=== PATIENT | female | born 1995 | race Caucasian/White ===

== ENCOUNTER 2019-10-28 13:56 | Emergency (ER) | payer OTHER ==
[~2019-10-28] VITALS: Ht 165.1 cm; Wt 65.3 kg
[2019-10-28 14:28] VITALS: BP 115/75
[2019-10-28 19:11] VITALS: BP 115/75
--- NOTE | 2019-10-28 19:11 | NUR ---
NO NURSING CARE RENDERED-ALL EVAL, TX AND DISCHARGED DONE BY ER ME DR SALAZAR
== END 2019-10-28 19:11 | disposition home or self-care (01) ==
LOC: MED 13:56
DX: B34.9 Viral infection, unspecified (principal)
CPT/HCPCS: 99281

== ENCOUNTER 2019-11-13 17:21 | Emergency (ER) | payer OTHER ==
[~2019-11-13] VITALS: Ht 162.6 cm; Wt 66.7 kg
[2019-11-13 17:24] VITALS: BP 118/63
--- NOTE | 2019-11-13 17:36 | NUR ---
24 Y/O FEMALE C/O "SMALL BUMPS" ON SOFT PALATE EXTENDING TO THROAT FOR 1 MONTH. PT STATES "I FEEL LIKE THERE IS A BIG PILL STUCK IN MY THROAT". NO BUMPS OR ABNORMALITIES NOTED IN MOUTH OR THROAT. PT DENIES ANY TROUBLE SWALLOWING/BREATHING. MUCOUS MEMBRANES PINK AND MOIST. NKA NO PMH
--- NOTE | 2019-11-13 18:07 | NUR ---
Patient being evaluated by Dr. Starr at bedside.
[2019-11-13 18:35] VITALS: BP 112/76
--- NOTE | 2019-11-13 18:35 | NUR ---
Patient discharged with v/s stable. Written and verbal after care instructions given and explained. Patient alert, oriented and verbalized understanding of instructions. Ambulatory with steady gait. All questions addressed prior to discharge. ID band removed. Patient advised to follow up with PMD. Rx of Azithromycin 250mg given. Patient educated on indication of medication including possible reaction and side effects. Opportunity to ask questions provided and answered.
== END 2019-11-13 18:35 | disposition home or self-care (01) ==
LOC: MED 17:21
DX: J02.9 Acute pharyngitis, unspecified (principal)
CPT/HCPCS: 99283

== ENCOUNTER 2019-11-21 17:03 | Emergency (ER) | payer OTHER ==
[~2019-11-21] VITALS: Ht 165.1 cm; Wt 65.9 kg
[2019-11-21 17:13] VITALS: BP 129/83
--- NOTE | 2019-11-21 17:13 | NUR ---
PER PT NOTICED "RED SPOTS" ON ROOF OF MOUTH X 1 MONTH. DENIES ANY ALLERGIC REACTION TO ANY FOOD OR MEDICINE. PT PRESENTS EUPNIC,VSS,AMBULATORY,A/OX4. NO DISTRESS NOTED. NO APPETITE CHANGES. NO RECENT DENTAL WORK DONE. DENIES NVD. NO HX,RX. PT AMBULATED TO [facility]
--- NOTE | 2019-11-21 17:31 | NUR ---
PA AT [facility]
--- NOTE | 2019-11-21 17:56 | NUR ---
STREP SWAB DONE ; TAKEN TO LAB
[2019-11-21 19:06] VITALS: BP 125/80
== END 2019-11-21 19:06 | disposition home or self-care (01) ==
LOC: MED 17:03
DX: J02.9 Acute pharyngitis, unspecified (principal)
CPT/HCPCS: 87081; 99283

== ENCOUNTER 2019-12-23 15:08 | Emergency (ER) | payer OTHER ==
[~2019-12-23] VITALS: Ht 165.1 cm; Wt 67.4 kg
[2019-12-23 15:11] VITALS: BP 120/78
--- NOTE | 2019-12-23 15:18 | NUR ---
Ambulated to bed 4
--- NOTE | 2019-12-23 15:29 | NUR ---
C/O DIZZINESS, LOWER ABDOMINAL PAIN, URINARY BURNING, LOWER BACK PAIN X 1 WEEK.PT AOX 4, AFIBRILE , AMBULATORY WITH STEADY GAIT , PINK PALPEBRAL CONJUNCTIVA , ANICTERIC SCLERA , SCE , FLAT SOFT ABDOMEN. MED HX: TUBALIGATION
--- NOTE | 2019-12-23 15:41 | NUR ---
AT BEDSIDE EVALUATING PT.
[2019-12-23 16:59] VITALS: BP 120/78
--- NOTE | 2019-12-23 16:59 | NUR ---
Patient discharged with v/s stable. Written and verbal after care instructions given and explained regarding dysuria . Patient alert, oriented and verbalized understanding of instructions. Ambulatory with steady gait. All questions addressed prior to discharge. ID band removed. Patient advised to follow up with PMD. Rx of valtrex and pyridium given. Patient educated on indication of medication including possible reaction and side effects. Opportunity to ask questions provided and answered.
== END 2019-12-23 16:59 | disposition home or self-care (01) ==
LOC: MED 15:08
DX: R30.0 Dysuria (principal); R10.9 Unspecified abdominal pain; Z98.890 Other specified postprocedural states
CPT/HCPCS: 81002; 81025; 99283

== ENCOUNTER 2023-08-11 18:26 | Emergency (ER) | payer OTHER ==
[~2023-08-11] VITALS: Ht 165.1 cm; Wt 74.8 kg
[2023-08-11 18:43] VITALS: BP 108/65; PULSE 85; RESP 18; TEMP 97.5; O2SAT 99
[2023-08-11] MEDS: KETOROLAC 60 MG/2 ML VIAL IM ONE (20:29)
[2023-08-11] MEDS: ONDANSETRON 4 MG ODT PO ONE (20:30)
[2023-08-11] MEDS ORDERED: MELO-176 PO (20:54)
[2023-08-11] MEDS ORDERED: ONDA-188 SL (20:54)
[2023-08-11 21:00] VITALS: BP 108/65; PULSE 85; RESP 18; TEMP 97.5; O2SAT 99
== END 2023-08-11 21:00 | disposition home or self-care (01) ==
LOC: MED 18:26
DX: G43.909 Migraine, unspecified, not intractable, without status migrainosus (principal); H11.31 Conjunctival hemorrhage, right eye; Z79.899 Other long term (current) drug therapy
CPT/HCPCS: 70450; 81002; 81025; 96372; 99285; J1885; Q0162